=== PATIENT | female | born 1985 | race Caucasian/White ===

== ENCOUNTER 2019-05-07 23:24 | Emergency (ER) | payer OTHER, BC ==
[~2019-05-07] VITALS: Ht 165.1 cm; Wt 79.4 kg
[2019-05-08 00:19] VITALS: BP 109/71
== END 2019-05-08 00:15 | disposition home or self-care (01) ==
LOC: M.ERS 23:24
DX: S59.912A Unspecified injury of left forearm, initial encounter (principal); J45.909 Unspecified asthma, uncomplicated; W18.39XA Other fall on same level, initial encounter; Y93.89 Activity, other specified; Y92.89 Other specified places as the place of occurrence of the external cause; Y99.8 Other external cause status